=== PATIENT | female | born 1950 ===

== ENCOUNTER 2025-07-03 17:14 | Emergency (ER) | payer OTHER ==
[~2025-07-03] VITALS: Ht 167.6 cm; Wt 108.9 kg
[~2025-07-03 17:14] MED LIST: AVALIDE 300-12.1 TAB; BENADRYL50 MG PO; JANUMET XR 50-1 EACH; MEDROLPACK PO
[2025-07-03] MEDS ORDERED: CLINDAMYCIN PHOSPHATE 150 MG/ML (300mg) IM STA (21:51)
[2025-07-03] MEDS ORDERED: KETOROLAC TROMETHAMINE 30 MG VIAL IM STA (21:51)
[2025-07-03] MEDS ORDERED: CLINDAMYCIN PHOSPHATE 150 MG/ML (300mg) ONE (21:54)
[2025-07-03] MEDS ORDERED: KETOROLAC TROMETHAMINE 30 MG VIAL ONE (21:54)
[2025-07-03] MEDS ORDERED: DUI500 PO (21:55)
== END 2025-07-03 22:09 | disposition home or self-care (01) ==
LOC: ER 17:14
DX: L03.90 Cellulitis, unspecified (principal); Z91.013 Allergy to seafood
CPT/HCPCS: 96372; 99282; J1885; J3490